=== PATIENT | female | born 1940 | race Caucasian/White ===

== ENCOUNTER → 2019-10-12 | Outpatient (CLI) | payer MEDICARE | END | disposition home or self-care (01) | LOC: LABPAT 10:56 | PROVIDERS: ATTEND Orthopaedic Surgery | DX: Z01.812 Encounter for preprocedural laboratory examination (principal) | CPT/HCPCS: 87070 ==

== ENCOUNTER 2019-10-21 05:52 | Day surgery (SDC) | payer MEDICARE ==
[2019-10-14 10:18] VITALS: BMI 32.3
--- NOTE | 2019-10-20 15:26 | HP ---
HISTORY AND PHYSICAL REASON FOR ADMISSION: Surgery is scheduled for 10/21/2019 HISTORY OF PRESENT ILLNESS: Clemencia Mancuso is a 79-year-old patient seen with symptomatic left knee osteoarthritis. We discussed options for treatment. She elected to proceed with total knee arthroplasty. Consent was obtained. Medical clearance was provided by Dr. Adal Brody. PAST MEDICAL HISTORY: Hypothyroidism, hyperlipidemia, hypertension. PAST SURGICAL HISTORY: Noncontributory. MEDICATIONS: Levothyroxine, simvastatin, losartan/hydrochlorothiazide. ALLERGIES: None. SOCIAL HISTORY: She denies tobacco use. PHYSICAL EXAMINATION: Evaluation of the left knee: Range of motion is -3 to 115. There is a mild effusion. There is tenderness along the medial and lateral joint lines. Crepitus along the medial patellofemoral compartments with range of motion. Genu varum deformity. Distal neurovascular exam is intact. RADIOGRAPHS: Radiographs of the left knee revealed severe/advanced osteoarthritic changes. IMPRESSION: 1. Left knee osteoarthritis. 2. Hypertension. 3. Hyperlipidemia. 4. Hypothyroidism. PLAN: Left total knee arthroplasty. Surgery scheduled for 10/21/2019. MMODL / IJN: [id number] /
[~2019-10-21 05:52] MED LIST: ACETAMINOPHEN TAB 500 MG TAB PO ONE; DEXAMETHASONE SOD PHOSPHATE 10 MG/ML 1 ML VIAL IV ONE; HYDROmorphone 0.5 MG/0.5 ML SYRINGE IVP PRN; MELOXICAM 7.5 MG TAB PO ONE; MIDAZOLAM 2 MG/2 ML VIAL IV PRN; ONDANSETRON 4 MG/2 ML VIAL IVP ONE; TRANEXAMIC ACID 1,000 MG in SODIUM CHLORIDE 0.9% 100 ML IVPB ONE
[2019-10-21] MEDS ORDERED: LIDOCAINE 1% (10MG/ML) FOR IV START INTRADERMA ONE (06:44)
[2019-10-21] MEDS: LACTATED RINGERS 1,000 ML IV SCH (06:44)
[2019-10-21] MEDS ORDERED: TRANEXAMIC ACID 1,000 MG/10 ML VIAL ONE (07:29)
[2019-10-21] MEDS ORDERED: SODIUM CHLORIDE 0.9% 100 ML BAG ONE (07:29)
[2019-10-21] MEDS ORDERED: MIDAZOLAM 2 MG/2 ML VIAL ONE (07:29)
[2019-10-21] MEDS ORDERED: PROPOFOL 10 MG/ML 20 ML VIAL IV ONE (07:29)
[2019-10-21] MEDS ORDERED: fentaNYL (PF) 50 MCG/ML 2 ML AMP ONE (07:29)
[2019-10-21] MEDS ORDERED: ceFAZolin 3,000 MG in SODIUM CHLORIDE 0.9% IRRIGATIO 3,000 ML IRRIGATION ONE (07:33)
[2019-10-21] MEDS ORDERED: ROPIVACAINE 0.2%-NS ON-Q PUMP 1,090 MG, EMPTY PAIN BALL 1 EACH MISCELLANE PRN (08:13)
[2019-10-21] MEDS: ROPIVACAINE 246.25 MG, EPINEPHrine 0.5 MG, KETOROLAC 30 MG, cloNIDine HCL/PF 80 MCG, WA... MISCELLANE ONE ×10 (08:16→08:35)
--- NOTE | 2019-10-21 08:16 | P.ANPRN ---
Procedure Note - Anesthesia - Nerve Block Performed Left Adductor Canal Single Time Out Performed: Yes Date of Procedure: 10/21/19 Procedure Start Time: 06:56 Procedure Stop Time: 07:05 Location of Patient: PreOp Indication: Acute Post-Operative Pain, Requested by Surgeon Sedation Type: Sedate with meaningful contact maintained Preparation: Sterile Prep, Sterile Dressing Position: Supine Catheter: Indwelling Needle Types: Pajunk Needle Gauge: 18 Ultrasound used to visualize needle placement: Yes Ultrasound used to observe medication spread: Yes Injectate: 0.5% Ropivacaine (see comment for volume) (20 ml) Blood Aspirated: No Pain Paresthesia on Injection Noted: No Resistance on Injection: Normal Image Stored and Saved: Yes Events: Uneventful and Well Tolerated
[2019-10-21] MEDS ORDERED: LACTATED RINGERS 1,000 ML IV ONE (08:54)
[2019-10-21] MEDS ORDERED: HYDROmorphone 0.5 MG/0.5 ML SYRINGE IVP PRN ×3 (09:38)
[2019-10-21] MEDS ORDERED: ONDANSETRON 4 MG/2 ML VIAL IVP PRN (09:38)
[2019-10-21] MEDS ORDERED: HYDROcodone/APAP 5-325MG 1 EACH TAB PO PRN (09:38)
[2019-10-21] MEDS ORDERED: NALOXONE 0.4 MG/ML 1 ML VIAL IV PRN (09:38)
--- NOTE | 2019-10-21 09:38 | P.OP ---
Date of Procedure: 10/21/19 Preoperative Diagnosis: Left knee osteoarthritis Postoperative Diagnosis: Left knee osteoarthritis Procedure(s) Performed: Left total knee arthroplasty Implants: 1. [place] attune size 6 narrow left cruciate retaining cemented femur 2. [place] attune size 6 cemented tibial baseplate 3. [place] attune size 6 fixed bearing cruciate retaining 7 mm polyethylene tibial insert 4. [place] attune 35mm all polyethylene cemented patella Anesthesia: regional (Adductor canal catheter), local, spinal Surgeon: Patrice Jim Tank Processor #1: Jemal Esposito Estimated Blood Loss (ml): 30 Pathology: other (Bone) Condition: stable Disposition: PACU Indications for Procedure: 79-year-old patient seen with symptomatic left knee osteoarthritis. After treatment options were discussed, she elected to proceed with total knee arthroplasty Operative Findings: See description of procedure Description of Procedure: Patient was taken to the operative suite after having an adductor canal catheter placed by the department of anesthesia. Patient underwent a spinal anesthetic by the department of anesthesia. Patient was given preoperative IV intake antibiotics and TXA. A well-padded tourniquet was placed about the left lower extremity. The lower extremity was then prepped and draped in the normal sterile orthopedic fashion. The extremity was elevated, a tourniquet was insufflated to 300. A standard anterior incision was made sharply through skin. Dissection was taken down through the subcutaneous soft tissues down to the extensor mechanism. A medial arthrotomy was performed, patella was everted and knee was flexed. There was advanced osteoarthritis noted. I introduced my distal intramedullary femoral drill. I then introduced the distal femoral cutting jig. Mann LIANG secured the cutting jig with 2 pins. I held retractors in position while Mann LIANG performed the distal femoral resection through the guide area we now removed her distal femoral cutting gu sudeep. We now placed our 4-in-1 femoral cutting block and positioned and it was secured with 2 pins by Mann LIANG while I held the block in position. The distal femoral finishing was now completed. A proximal tibial cutting guide was positioned. I held the guide in the appropriate position with both hands well Mann LIANG inserted stabilizing pins into the guide. Proximal tibial cut was made. We now placed a trial femoral component into position, along with an appropriate size tibial tray and insert. We now took the knee through range of motion and had full extension good flexion and good overall soft tissue balance noted. The patella was everted and stabilized with 2 towel clips held by Mann LIANG while I performed a flush with patellar quad tendon utilizing a fresh sawblade. We templated the patella, appropriate drill holes were made. An appropriate trial patella was positioned, knee was taken through full range of motion with the patella tracking very nicely. The trial patella was removed. Drill holes were made through the femoral component. All trial components were removed after marking off the appropriate rotation of the tibia. Retractors were now positioned along the proximal tibia. An appropriate keel punch was made with the appropriate size tibial guide by myself on Mann LIANG assisted by holding retractors. At this point appropriate size implants were chosen and opened. The joint was irrigated copiously with pulse lavage mechanical irrigation. The posterior capsule was infiltrated with local analgesic. The wound was irrigated with pulse lavage mechanical irrigation. We mixed antibiotic methylmethacrylate. We placed the knee into flexion. We placed multiple retractors assisted by Mann LIANG to expose the proximal tibia. On ce the methyl methacrylate was ready, the tibial component was cemented into place removing any excess methylmethacrylate form by both myself and Mann LIANG. The femoral component was cemented into place removing the removing any excess methylmethacrylate performed by both myself and Mann LIANG. We then inserted the appropriate size polyethylene tibial insert. We made sure that it was locked into position. We took the knee into full extension, and then back in a flexion making sure we had removed any excess methylmethacrylate. The patellar component was then cemented down and secured with clamp. Excess methylmethacrylate removed. We kept the knee in full extension, patellar clamp in position until methylmethacrylate had hardened. Once it had hardened the patellar clamp was removed. The knee was taken through full range of motion. The patella tracked nicely. There was good soft tissue balancing. The tourniquet was now released. Additional hemostasis was achieved via electrocautery. A second gram of TXA was given. The wound again was irrigated with pulse lavage mechanical irrigation. The superficial soft tissues were infiltrated local analgesic. The extensor mechanism was repaired with Vicryl. We checked the repair with range of motion and it was stable. The subcutaneous soft tissues were repaired with Vicryl in layers. The skin was approximated with pernio/Dermabond. Sterile dressings were applied followed by loose web roll and Caden bandage. The patient was transferred to a bed, and taken to recovery in stable and satisfactory condition. Mann LIANG assisted with this complex procedure.
--- NOTE | 2019-10-21 10:16 | XR ---
EXAMINATION TYPE: XR knee limited LT DATE OF EXAM: 10/21/2019 CLINICAL HISTORY: Left knee pain and arthritis status post total knee replacement. TECHNIQUE: Portable AP and crosstable lateral views of the left knee are obtained immediately postop eratively. COMPARISON: None FINDINGS: Metallic hardware from total left knee arthroplasty is seen and appears satisfactory in al ignment and position. There is evidence of recent surgery with diffuse subcutaneous and soft tissue swelling noted. IMPRESSION: METALLIC HARDWARE FROM TOTAL LEFT KNEE ARTHROPLASTY IS SATISFACTORY IN ALIGNMENT.
[2019-10-21] MEDS: SODIUM CHLORIDE 0.9% 1,000 ML IV SCH (11:49)
[2019-10-21] MEDS: HYDROcodone/APAP 5-325MG 1 EACH TAB PO PRN (15:21)
[2019-10-21] MEDS ORDERED: SENNOSIDES-DOCUSATE SODIUM 1 EACH TAB PO SCH (21:00)
[2019-10-21] MEDS: ENOXAPARIN 30 MG/0.3 ML SYRINGE SQ SCH (21:37)
[2019-10-22] MEDS: SODIUM CHLORIDE 0.9% 1,000 ML IV SCH (07:03)
[2019-10-22] MEDS: LACTATED RINGERS 1,000 ML IV SCH (07:04)
[2019-10-22 07:43] VITALS: BP 173/95; RESP 12; TEMP 97.7
--- NOTE | 2019-10-22 07:44 | P.PN ---
Progress Note - Text Progress Note Date: 10/22/19 Pt without complaints. Pain 12/02. OOB. Left adductor canal catheter site clean and dry. A/P POD#1 s/p L TKA with L adductor block - doing well - continue multimodal analgesia
[2019-10-22 08:01] LABS: Basophils % (A) 0 %; Eosinophils % (A) 0 %; HCT 35.8 % (34.0-46.0); HGB 11.4 gm/dL (11.4-16.0); Lymphocytes # (A) 1.1 k/uL (1.0-4.8); Lymphocytes % (A) 10 %; MCH 29.2 pg (25.0-35.0); MCHC 31.8 g/dL (31.0-37.0); MCV 91.7 fL (80.0-100.0); Mean Platelet Volume 9.3; Monocytes # (A) 0.5 k/uL (0-1.0); Monocytes % (A) 5 %; Neutrophils # (A) 8.7 k/uL (1.3-7.7); Neutrophils % (A) 83 %; Platelet Count 165 k/uL (150-450); RDW 13.6 % (11.5-15.5); WBC 10.4 k/uL (3.8-10.6)
[2019-10-22] MEDS: ENOXAPARIN 30 MG/0.3 ML SYRINGE SQ SCH (08:32)
[2019-10-22] MEDS: HYDROcodone/APAP 5-325MG 1 EACH TAB PO PRN ×2 (08:32→14:25)
[2019-10-22] MEDS ORDERED: MELOXICAM 7.5 MG TAB PO SCH (09:00)
[2019-10-22 10:24] VITALS: PULSE 60
--- NOTE | 2019-10-22 11:19 | P.PN ---
Subjective Progress Note Date: 10/22/19 Principal diagnosis: status post left total knee arthroplasty Patient evaluated at bedside, her daughter is present. Her sensory ambulated well with therapy. Her pain is well-controlled. She denies any chest pain or shortness of breath. Objective - Vital Signs Vital signs: Vital Signs Temp 97.7 F 10/22/19 07:00 Pulse 60 10/22/19 07:35 Resp 12 10/22/19 07:35 BP 173/95 10/22/19 07:00 Pulse Ox 94 L 10/22/19 07:00 Intake & Output 10/21/19 10/22/19 10/22/19 18:59 06:59 18:59 Intake Total 851 480 Output Total 30 Balance 821 480 Weight 91.4 kg Intake: IV 851 Oral 480 Output: Estimated Blood Loss 30 Other: Voiding Method Toilet Toilet # Voids 2 1 - Exam Left lower extremity: Incision is clean, dry, and intact. The exofin fusion tape is in good condition. There is minimal soft tissue swelling and ecchymosis surrounding the medial and lateral aspects of the incision. Calf is soft, no tenderness with palpation. Plantar flexion, dorsiflexion, EHL, FHL are intact. Sensory exam to light touch throughout the extremity is intact, dorsal pedis pulses 2+. - Labs CBC & Chem 7: 10/22/19 07:29 Labs: Abnormal Lab Results - Last 24 Hours (Table) 10/22/19 Range/Units 07:29 Neutrophils # 8.7 H (1.3-7.7) k/uL Assessment and Plan Plan: Assessment: Postoperative day #1 status post left total knee arthroplasty Plan: Pain control, Leonardo 5 mg/325 mg GI and DVT prophylaxis, aspirin 81 mg twice a day Wound care instructions discussed Ice and elevation techniques were discussed Medical management Home physical therapy and nursing after discharge Discharge planning: Patient will be discharged home today Time with Patient: Less than 30
--- NOTE | 2019-10-22 11:21 | P.DS ---
Providers Date of admission: 10/21/2019 Expected date of discharge: 10/22/19 Attending physician: Patrice Jim Consults: 10/21/19 09:38 Consult Physician Routine Consulting Provider: Adal Brody Reason/Comments: Medical management Do you want consulting provider notified?: Yes Primary care physician: Adal Brody Hospital Course: Date of admission: 10/21/2019 Date of discharge: 10/22/2019 Admission diagnosis: Status post left total knee arthroplasty Discharge diagnosis: Same Attending physician: Dr. Jim Surgical procedures: Left total knee arthroplasty Brief history: Patient is a 79-year-old female with a history of progressive primary left knee osteoarthritis. At this point patient has failed conservative treatment measures and has opted to proceed with a elective left total knee arthroplasty. Hospital course: Details of patient's surgery can be found in operative report. Patient tolerated the procedure well and was subsequently transported to orthopedic floor. Patient's orthopeidc and medical care was provided daily. Patient had daily laboratory tests performed for evaluation of overall blood counts. Patient had daily physical therapy to include strengthening range of motion as well as education with walker ambulation. Patient had daily CPM usage as part of their physical therapy program. Patient was treated with Lovenox for their postoperative DVT prophylaxis during their inpatient stay. Patient was noted to have a relatively uneventful postoperative course. Patient reported satisfactory pain control with oral pain medications by postoperative day 0. Patient showed satisfactory progress with physical therapy. Patient moved steadily through the program and had no difficulty meeting the goals by postoperative day 1. Given patient's otherwise satisfactory course and having met physical therapy goals, plan is to discharge patient home on postoperative day 1. Discharge condition/disposition: Patient will be discharged home in stable condition. Discharge medications: Instructions are given on resumption of patient's normal daily medications per primary care recommendation, in addition patient will be prescribed [place] 5 mg/325 mg, Colace 100 mg, aspirin 81 mg. Discharge instructions: 1. Wound care and infection precautions, keep incision dry and covered while showering, no lotions, creams, moisturizers. No soaking, tubs, pools, hottubs. Do not scrub over the incision. 2. Weight-bear as tolerated with walker / cane until follow-up. 3. Ice and elevate when necessary. Do not exceed 20 minutes per hour with ice pack. 4. Utilize compression sleeve until seen at first follow up appointment. 5. Visiting nursing care. 6. Home physical therapy including home CPM. 7. Pain meds and anticoagulants per prescription. 8. Pain medication has potential to cause constipation. Increase oral fluid and fiber intake. Contact primary care provider if you have not had a bowel movement within 48 hours after discharge 9. No anti-inflammatory medication until discussed at first post operative visit, this including Motrin, Aleve, Mobic, Diclofenac. 10. Follow up in office at 2 weeks postop with Mann Esposito PA-C 11. Follow up with your primary care doctor 7-10 days after discharge. 12. Contact [facility] with any questions, . Procedures: Left total knee arthroplasty Patient Condition at Discharge: Good Plan - Discharge Summary Discharge Rx Participant: Yes New Discharge Prescriptions: New Aspirin [Adult Low Dose Aspirin EC] 81 mg PO BID #60 tablet. Docmili [Colace] 100 mg PO DAILY #30 capsule Hydrocodone/Acetaminophen [[place] 5-325] 1 - 2 each PO Q6HR PRN #40 tab PRN Reason: Pain No Action Celecoxib [CeleBREX] 200 mg PO DAILY Simvastatin [Zocor] 40 mg PO HS Levothyroxine Sodium [Synthroid] 112 mcg PO DAILY Valsartan/Hydrochlorothiazide [Valsartan-Hctz 80-12.5 mg Tab] 1 each PO QAM Cholecalciferol (Vitamin D3) [Vitamin D3] 3,000 unit PO DAILY Ibuprofen [Motrin Ib] 200 mg PO DIRECTED PRN PRN Reason: Pain Discharge Medication List Celecoxib [CeleBREX] 200 mg PO DAILY 10/14/19 [History] Cholecalciferol (Vitamin D3) [Vitamin D3] 3,000 unit PO DAILY 10/14/19 [History] Ibuprofen [Motrin Ib] 200 mg PO DIRECTED PRN 10/14/19 [History] Levothyroxine Sodium [Synthroid] 112 mcg PO DAILY 10/14/19 [History] Simvastatin [Zocor] 40 mg PO HS 10/14/19 [History] Valsartan/Hydrochlorothiazide [Valsartan-Hctz 80-12.5 mg Tab] 1 each PO QAM 10/14/19 [History] Aspirin [Adult Low Dose Aspirin EC] 81 mg PO BID #60 tablet. 10/22/19 [Rx] Docusate [Colace] 100 mg PO DAILY #30 capsule 10/22/19 [Rx] Hydrocodone/Acetaminophen [[place] 5-325] 1 - 2 each PO Q6HR PRN #40 tab 10/22/19 [Rx] Follow up Appointment(s)/Referral(s): [facility] [NON-STAFF] - As Needed (walker and Continuous Passive Motion knee machine ) [facility], [NON-STAFF] - As Needed Jemal Esposito PAC [PHYSICIAN FRONT DESK SUPERVISOR] - 11/06/19 2:10 pm Activity/Diet/Wound Care/Special Instructions: Orthopedic Discharge Instructions: 1. Wound care and infection precautions, keep incision dry and covered while showering, no lotions, creams, moisturizers. No soaking, pools, hot tubs. Do not scrub over incision. 2. Weight-bear as tolerated with walker / cane until follow-up. 3. Ice and elevate when necessary. Do not exceed 20 minutes per hour with ice pack. 4. Utilize compression sleeve until seen at first follow up appointment. 5. Pain meds and anticoagulants per prescription. 6. Pain medication has potential to cause constipation. Increase oral fluid and fiber intake. Contact primary care provider if you have not had a bowel movement within 48 hours after discharge. 7. No anti-inflammatory medication until discussed at first post operative visit, this including Motrin, Aleve, Mobic, Diclofenac. 8. Follow up in office at 2 weeks postop with Mann Esposito PA-C 9. Follow up with your primary care doctor 7-10 days after discharge. 10. Contact [facility] with any questions, . Discharge Disposition: HOME WITH HOME HEALTH SERVICES
--- NOTE | 2019-10-23 18:14 | P.CONS ---
History of Present Illness - Reason for Consult Consult date: 10/22/19 medical consult Requesting physician: Patrice Jim - Chief Complaint left knee osteoarthritis - History of Present Illness This is a 79-year-old female history of hyperlipidemia, hypertension, rheumatoid arthritis, hypothyroidism and multiple other medical issues,Status post elective left total knee arthroplasty for symptomatic left knee osteoarthritis. Tolerated procedure well. Ambulating with PT, tolerated exertion well. Denies lightheadedness, dizziness or focal deficits. Positive diet intake with no nausea or vomiting or diarrhea. Passing flatus, no bowel movement. Surgical site tender, pain controlled-pain pump present. Denies chest pain, palpitations or shortness of breath. Consider spirometer up to 1500. Patient recently received pain medication, repeat blood pressure ordered. Review of Systems Constitutional: Denied any fatigue denied any fever. Cardio vascular: denied any chest pain, palpitations Gastrointestinal denied any nausea vomiting Pulmonary: Denied any shortness of breath cough Neurologic denied any new focal deficits ROS Statement: Those systems with pertinent positive or pertinent negative responses have been documented in the HPI. ROS Other: All systems not noted in ROS Statement are negative. Past Medical History Past Medical History: Hyperlipidemia, Hypertension, Rheumatoid Arthritis (RA), Skin Disorder, Thyroid Disorder Additional Past Medical History / Comment(s): hx migraines, varicose veins, umbilical hernia, rash on forehead, "weak bladder" History of Any Multi-Drug Resistant Organisms: None Reported Past Surgical History: Cholecystectomy, Tonsillectomy Additional Past Surgical History / Comment(s): varicose vein surgery left leg, surgery to remove goiter, Past Anesthesia/Blood Transfusion Reactions: No Reported Reaction Past Psychological History: No Psychological Hx Reported Smoking Status: Never smoker Past Alcohol Use History: Occasional Past Drug Use History: None Reported - Past Family History Father Family Medical History: Cancer Mother Family Medical History: Cancer Sister(s) Family Medical History: Cancer Medications and Allergies Home Medications Medication Instructions Recorded Confirmed Type Celecoxib [CeleBREX] 200 mg PO DAILY 10/14/19 10/14/19 History Cholecalciferol (Vitamin D3) 3,000 unit PO DAILY 10/14/19 10/21/19 History [Vitamin D3] Ibuprofen [Motrin Ib] 200 mg PO DIRECTED PRN 10/14/19 10/14/19 History Levothyroxine Sodium [Synthroid] 112 mcg PO DAILY 10/14/19 10/21/19 History Simvastatin [Zocor] 40 mg PO HS 10/14/19 10/21/19 History Valsartan/Hydrochlorothiazide 1 each PO QAM 10/14/19 10/21/19 History [Valsartan-Hctz 80-12.5 mg Tab] Aspirin [Adult Low Dose Aspirin EC] 81 mg PO BID #60 tablet. 10/22/19 Rx Docusate [Colace] 100 mg PO DAILY #30 capsule 10/22/19 Rx Hydrocodone/Acetaminophen [[place] 1 - 2 each PO Q6HR PRN #40 tab 10/22/19 Rx 5-325] Allergies Allergy/AdvReac Type Severity Reaction Status Date / Time No Known Allergies Allergy Verified 10/21/19 06:15 Physical Exam Vitals: Vital Signs Temp Pulse Pulse Resp BP Pulse Ox 10/22/19 07:35 60 63 12 10/22/19 07:00 97.7 F 63 12 173/95 94 L 10/22/19 04:34 14 10/22/19 02:05 97.6 F 60 139/75 93 L 10/22/19 00:49 14 10/21/19 19:48 97.7 F 60 14 169/77 94 L Intake and Output 10/22/19 10/22/19 10/22/19 06:59 14:59 22:59 Intake Total 480 Balance 480 Intake: Oral 480 Other: Voiding Method Toilet Toilet # Voids 1 2 PHYSICAL EXAM: VITAL SIGNS: [As above] GENERAL: Sitting up in bed, no acute distress HEENT: Conjunctivae normal. eyes normal. Oral mucosa moist NECK: No JVD. No thyroid enlargement. No LNs CARDIOVASCULAR: S1, S2 regular.. No murmur RESPIRATION: Breath sounds diminished in the bases. No rhonchi or crackles. No bronchial breathing. ABDOMEN: Soft, nontender . No guarding. no masses palpable. No ascites, No hepatosplenomegaly.Bowel sounds heard. LEGS: Left knee surgical site with minimal swelling, tender, dressing clean dry and intact, positive pulses. PSYCHIATRY: Alert and oriented X3, mood and affect normal. NERVOUS SYSTEM: Cranial N 2-12 grossly normal. Moves all 4 limbs. No focal deficits. Strength and sensation grossly intact.. Skin: no rash Lymphatic system. No LN neck axilla. Results CBC & Chem 7: 10/22/19 07:29 Labs: Abnormal Lab Results - Last 24 Hours (Table) 10/22/19 Range/Units 07:29 Neutrophils # 8.7 H (1.3-7.7) k/uL Assessment and Plan Assessment: Symptomatic left knee osteoarthritis, failed conservative treatments, status post total knee arthroplasty Hypertension Hyperlipidemia Rheumatoid arthritis Hypothyroidism Plan: Continue on current medication regime ,monitoring and symptomatic tr eatment. Pain management. GI and DVT prophylaxis in place. Home meds have been reviewed and resumed accordingly. Patient expecting to be discharged home later today per orthopedic surgery. Aggressive pulmonary toileting, with incentive spirometer reinforced. Follow PCP in [address] Jim for the consult. The impression and plan of care has been dictated as directed. : I performed a history and examination of this patient, discussed the same with the dictator. I agree with the dictator's note ,documented as a scribe. Any additional findings or plans will be noted.
== END 2019-10-22 14:32 | disposition home health service (06) ==
LOC: OR 05:52 → 4SSUR 10:09 → OR 10-22 14:32
PROVIDERS: ATTEND Orthopaedic Surgery
DX: M17.12 Unilateral primary osteoarthritis, left knee (principal); M21.162 Varus deformity, not elsewhere classified, left knee; I10 Essential (primary) hypertension; E78.5 Hyperlipidemia, unspecified; E89.0 Postprocedural hypothyroidism; M06.9 Rheumatoid arthritis, unspecified; I83.90 Asymptomatic varicose veins of unspecified lower extremity; G43.909 Migraine, unspecified, not intractable, without status migrainosus; Z79.890 Hormone replacement therapy; Z79.899 Other long term (current) drug therapy; Z90.49 Acquired absence of other specified parts of digestive tract; Z90.89 Acquired absence of other organs; Z80.9 Family history of malignant neoplasm, unspecified
CPT/HCPCS: 97116; 97161; 64448; 76942; 85025; 88300; 73560; 27447; C1776; C1713; J2250; J0171; J1100; J0690 ×3; J2405; J3010; J1885; J1650 ×2; J2795 ×2; J2704; J0735